=== PATIENT | male | born 1995 | race African-American/Black ===

== ENCOUNTER 2019-12-14 08:12 | Emergency (ER) | payer SELFPAY ==
[~2019-12-14] VITALS: Ht 185.4 cm; Wt 77.0 kg
[2019-12-14 08:14] VITALS: BP 117/67
[2019-12-14] MEDS ORDERED: CEFTRIAXONE SODIUM 250 MG/VIAL IM NR (11:00)
[2019-12-14] MEDS ORDERED: CEFTRIAXONE SODIUM 250 MG/VIAL IM ONE (11:00)
[2019-12-14] MEDS ORDERED: AZITHROMYCIN 500 MG TABLET PO ONE (11:00)
[2019-12-14] MEDS ORDERED: KETOROLAC 30MG/ML VIAL IM ONE (11:00)
[2019-12-14] MEDS ORDERED: AZITHROMYCIN 500 MG TABLET PO NR (11:00)
[2019-12-14] MEDS ORDERED: LIDOCAINE HCL/PF 1% 10 MG/ML 5ML VIAL IJ ONE (11:00)
[2019-12-14 11:38] LABS: CLARITY URINE CLEAR (CLEAR); COLOR URINE DARK YELLOW (YELLOW); KETONES URINE 1+ (NEGATIVE); LEUKOCYTE ESTERASE URINE NEGATIVE (NEGATIVE); NITRITE URINE NEGATIVE (NEGATIVE); OCCULT BLOOD URINE NEGATIVE (NEGATIVE); PROTEIN URINE NEGATIVE (NEGATIVE); SPECIFIC GRAVITY URINE 1.032 (1.005-1.030)
[2019-12-17 04:14] LABS: NEISSERIA GONORRHOEAE NAA Negative (Negative)
== END 2019-12-14 13:09 | disposition home or self-care (01) ==
LOC: ER 09:02
DX: L02.214 Cutaneous abscess of groin (principal); J45.909 Unspecified asthma, uncomplicated
CPT/HCPCS: 76870; 81003; 87491; 87591; 93976; 96372; 99284; J0696; J1885; J3490